=== PATIENT | female | born 1970 | race Caucasian/White ===

== ENCOUNTER 2018-01-12 03:53 | Emergency (ER) | payer OTHER ==
[~2018-01-12] VITALS: Ht 162.5 cm; Wt 104.3 kg
[2018-01-12] MEDS ORDERED: PENICILLIN VK500 MG PO (04:25)
== END 2018-01-12 04:39 | disposition home or self-care (01) ==
LOC: ED 03:53
DX: K04.7 Periapical abscess without sinus (principal)